=== PATIENT | female | born 1950 | race Caucasian/White ===

== ENCOUNTER 2021-01-21 10:35 | Emergency (ER) | payer MEDICARE, SELFPAY ==
--- NOTE | 2021-01-21 10:55 | ED.SKABFB ---
HPI - Skin/Abscess/Foreign Bdy General Chief complaint: Skin/Abscess/Foreign Body Stated complaint: Insect Bites Time Seen by Provider: 01/21/21 10:55 Source: patient and RN notes reviewed History of Present Illness HPI narrative: Patient is a 70-year-old female who presents the urgent care with complaints of insect bites to the left arm. Patient states that she was at a soccer game on Monday and got bit by gnats. Patient states that she refuses to take any yjfr-lvq-[id number] antihistamines because they make her drowsy . Therefore patient has only used hydrocortisone cream to the area. States that she needs a steroid . Denies any fever, chills, nausea, vomiting. No other acute complaints. No acute distress noted. Patient aware of the plan of care. Some parts of this dictation were generated by voice recognition software and may contain typographical and/or grammatical inaccuracies. Related Data Allergies Allergy/AdvReac Type Severity Reaction Status Date / Time No Known Allergies Allergy Verified 01/21/21 11:03 Review of Systems Review of Systems: Narrative: CONSTITUTIONAL: Denies fever, chills, or sweats. EYES: Denies visual changes, redness, or discharge. ENT: Denies rhinorrhea, congestion, sore throat, or otalgia. CARDIOVASCULAR: Denies chest pain, palpitations, or edema. RESPIRATORY: Denies cough or dyspnea. GASTROINTESTINAL: Denies abdominal pain, nausea, vomiting, or diarrhea. GENITOURINARY: Denies dysuria or hematuria. SKIN: Reports of itchy bug bites to the left lower arm MUSCULOSKELETAL: Denies back pain, joint pain, or myalgia. NEUROLOGIC: Denies headache, numbness, or weakness. All other systems reviewed are negative, except as documented in HPI. [facility] Social History Social History Gender identity (if verbalized by the patient): Female Comments At the time of my signature, I reviewed and agree with the nursing past medical, surgical, social, and family history. There is no relevant family history pertinent to the patient complaint. Exam Narrative: Exam Narrative: GENERAL: This is a well-nourished, well-developed patient, in no apparent distress. HEAD: normocephalic, atraumatic. EYES: PERRL. Sclera clear/white. Vision is grossly intact. EARS: External ears normal NOSE: External nose normal with no obvious nasal discharge, nares without redness, no rhinorrhea. THROAT: Mucous membranes moist NECK: Neck supple CARDIOVASCULAR: Regular rate and rhythm without murmurs, gallops, or rubs. RESPIRATORY: Clear to auscultation. Breath sounds equal bilaterally. No wheezes, rales, or rhonchi. SKIN: 4-5 scattered insect bites with mild erythema and edema noted to the left lower arm without any signs of cellulitis NEURO: awake, alert, and oriented to person, place and time. There were no obvious focal neurologic abnormalities. EXTREMITIES: No clubbing, cyanosis, or edema. Course Vital Signs Vital signs: Vital Signs Temperature 98.0 F 01/21/21 11:00 Pulse Rate 93 01/21/21 11:00 Respiratory Rate 20 01/21/21 11:00 Blood Pressure 154/74 H 01/21/21 11:00 Pulse Oximetry 100 01/21/21 11:00 Temperature 98.0 F 01/21/21 11:00 Pulse Rate 93 01/21/21 11:00 Respiratory Rate 20 01/21/21 11:00 Blood Pressure 154/74 H 01/21/21 11:00 Pulse Oximetry 100 01/21/21 11:00 Reviewed-patient is informed that they may have pre-hypertension or hypertension based on a blood pressure reading in the department. I recommend the patient call the primary care provider listed on their discharge instructions or a physician of their choice this week to arrange follow-up for further evaluation of possible pre-hypertension or hypertension. MDM - Skin/Abscess/Foreign Bdy MDM Narrative Medical decision making narrative: Advised the patient to use the prescription cream to the affected area. Complete the steroid regimen as prescribed. Be sure to eat and drink with the medication. Be sure that you are not sitting out i
[2021-01-21 11:00] VITALS: BP 154/74; PULSE 93; RESP 20; TEMP 36.7; O2SAT 100
== END 2021-01-21 11:14 | disposition home or self-care (01) ==
PROVIDERS: Emergency Provider Nurse Practitioner Family
DX: S50.862A Insect bite (nonvenomous) of left forearm, initial encounter (principal); W57.XXXA Bitten or stung by nonvenomous insect and other nonvenomous arthropods, initial encounter
CPT/HCPCS: 99213; G0463

== ENCOUNTER 2021-11-05 10:47 | Emergency (ER) | payer MEDICARE, SELFPAY ==
--- NOTE | 2021-11-05 10:54 | ED.EYEPROB ---
HPI - Eye Problem General Chief complaint: Eye Problems Stated complaint: Eye Problem Time Seen by Provider: 11/05/21 10:54 Source: patient and RN notes reviewed History of Present Illness HPI Narrative: Patient is a 71-year-old female who presents the urgent care with complaints of left eye pain. Patient states that she accidentally sprayed hairspray in the eye yesterday. States that she does not have any changes in vision but she still feels the pain . Patient has washed it out. States that she did this in the past and a prescription eyedrop the pain away . No other acute complaints. No acute distress noted. Patient aware of the plan of care. Some parts of this dictation were generated by voice recognition software and may contain typographical and/or grammatical inaccuracies. Related Data Allergies Allergy/AdvReac Type Severity Reaction Status Date / Time No Known Allergies Allergy Verified 11/05/21 11:05 Review of Systems Review of Systems: CONSTITUTIONAL: Denies fever, chills, or sweats. EYES: Reports of left eye pain without visual changes, redness or discharge ENT: Denies rhinorrhea, congestion, sore throat, or otalgia. CARDIOVASCULAR: Denies chest pain, palpitations, or edema. RESPIRATORY: Denies cough or dyspnea. GASTROINTESTINAL: Denies abdominal pain, nausea, vomiting, or diarrhea. GENITOURINARY: Denies dysuria or hematuria. SKIN: Denies rash or itching. MUSCULOSKELETAL: Denies back pain, joint pain, or myalgia. NEUROLOGIC: Denies headache, numbness, or weakness. All other systems reviewed are negative, except as documented in HPI. PMFSH Social History Social History Gender identity (if verbalized by the patient): Female Comments At the time of my signature, I reviewed and agree with the nursing past medical, surgical, social, and family history. There is no relevant family history pertinent to the patient complaint. Exam Narrative: GENERAL: This is a well-nourished, well-developed patient, in no apparent distress. HEAD: normocephalic, atraumatic. EYES: PERRL. Sclera clear/white. Vision is grossly intact-wearing corrective lenses. No obvious injury. Normal exam bilateral eyes. EARS: External ears normal NOSE: External nose normal with no obvious nasal discharge, nares without redness, no rhinorrhea. THROAT: Mucous membranes moist NECK: Neck supple CARDIOVASCULAR: Regular rate and rhythm without murmurs, gallops, or rubs. RESPIRATORY: Clear to auscultation. Breath sounds equal bilaterally. No wheezes, rales, or rhonchi. SKIN: warm, intact with no suspicious lesions or rash, good texture and turgor. NEURO: awake, alert, and oriented to person, place and time. There were no obvious focal neurologic abnormalities. EXTREMITIES: No clubbing, cyanosis, or edema. Course Course Level of Care: Express Care Visit Vital Signs Vital signs: Vital Signs Temperature 99.7 F H 11/05/21 10:58 Pulse Rate 89 11/05/21 10:58 Respiratory Rate 16 11/05/21 10:58 Blood Pressure 140/87 11/05/21 10:58 Pulse Oximetry 99 11/05/21 10:58 Temperature 99.7 F H 11/05/21 10:58 Pulse Rate 89 11/05/21 10:58 Respiratory Rate 16 11/05/21 10:58 Blood Pressure 140/87 11/05/21 10:58 Pulse Oximetry 99 11/05/21 10:58 Reviewed MDM - Eye Problem MDM Narrative Medical decision making narrative: Advised the patient to use prescription eyedrops to the left eye as prescribed. 3 days a prescribed drops should be more than enough. Continue eyewash or using Systane drops [id number]. If you have continual pain past 3 days or changes in vision?go to the emergency room and/or follow-up with your lead inspector. Follow-up with your PCP within 2 to 5 days or for worsening symptoms or failure to improve. Differential Diagnosis Differential diagnosis: Likely corneal abrasion, conjunctivitis, acute iritis, periorbital cellulitis and subconjunctival hemorrhage Critical Care Time Critical Care Time Critical
[2021-11-05 10:58] VITALS: BP 140/87; PULSE 89; RESP 16; TEMP 37.6; O2SAT 99
== END 2021-11-05 11:10 | disposition home or self-care (01) ==
PROVIDERS: Emergency Provider Nurse Practitioner Family
DX: H57.12 Ocular pain, left eye (principal)
CPT/HCPCS: 99213; G0463

== ENCOUNTER 2022-10-18 09:11 | Emergency (ER) | payer MEDICARE, SELFPAY ==
[2022-10-18 09:19] VITALS: BP 127/84; PULSE 96; RESP 16; TEMP 36.9; O2SAT 100
--- NOTE | 2022-10-18 09:43 | ED.GENADULT ---
HPI - General Adult General Chief complaint: Ear Stated complaint: Left Ear Pain Source: patient Mode of arrival: ambulatory Limitations: no limitations History of Present Illness HPI narrative: Patient presents for evaluation of left ear discomfort. Symptom onset 3 days ago. She reports pain, muffled hearing, and mild tinnitus. Denies drainage from the ear. No fever chills, nausea, vomiting, sore throat, or cough. She is not taking any medications to assist with her symptoms. No additional complaints or concerns. Related Data Allergies Allergy/AdvReac Type Severity Reaction Status Date / Time No Known Allergies Allergy Verified 11/05/21 11:05 Review of Systems Review of Systems: CONSTITUTIONAL: Denies fever, chills, or sweats. EYES: Denies visual changes, redness, or discharge. ENT: Reports left-sided otalgia, muffled hearing, tinnitus. Denies rhinorrhea, congestion, or sore throat CARDIOVASCULAR: Denies chest pain, palpitations, or edema. RESPIRATORY: Denies cough or dyspnea. GASTROINTESTINAL: Denies abdominal pain, nausea, vomiting, or diarrhea. GENITOURINARY: Denies dysuria or hematuria. SKIN: Denies rash or itching. MUSCULOSKELETAL: Denies back pain, joint pain, or myalgia. NEUROLOGIC: Denies headache, numbness, dizziness, or weakness. PSYCHIATRIC: Denies anxiety or depression. [facility] Past Medical History Medical History Seasonal allergies Surgical History Surgical History History of hysterectomy Family History Family History Mother Family history non-contributory Social History Social History Smoking status: Never smoker Alcohol intake: never Substance use: never Living arrangements: with family Gender identity (if verbalized by the patient): Female Sexual Orientation (if Verbalized by the Patient): Straight or Heterosexual Spiritual care concerns: No Exam Narrative: GENERAL: Well-appearing, well-nourished, and in no acute distress. HEAD: Normocephalic, atraumatic. EYES: PERRLA and EOMI. ENT: Nares clear, no rhinorrhea or epistaxis. Mucous membranes moist. Oropharynx without tonsillar hypertrophy exudate or other lesions. Left tympanic membrane erythema with yellow exudate and retraction present NECK: Supple. No adenopathy or masses. No carotid bruits or JVD CHEST: Clear to auscultation. No respiratory distress. No wheezes rales or rhonchi HEART: Regular rate and rhythm. No murmur heard. Normal peripheral pulses. ABDOMEN: Soft, nontender, nondistended, normal active bowel sounds. EXTREMITIES: Normal range of motion. No edema. SKIN: Warm, dry, no rash. NEURO: No focal deficits. Alert and oriented x3. PSYCH: Normal mood and affect. Course Course Emergency Course: This is a 72-year-old female who presented for evaluation of left-sided ear discomfort. She has evidence of otitis media on exam. Will treat with Augmentin. Increase hydration. Thtr-gpf-[id number] agents for symptom management. Follow up with primary provider. Go to the ER for worsening symptoms. Patient in agreement with plan of care. Level of Care: Express Care Visit Vital Signs Vital signs: Vital Signs Temperature 36.9 C 10/18/22 09:19 Pulse Rate 96 10/18/22 09:19 Respiratory Rate 16 10/18/22 09:19 Blood Pressure 127/84 10/18/22 09:19 Pulse Oximetry 100 10/18/22 09:19 Oxygen Delivery Room Air 10/18/22 09:19 Temperature 36.9 C 10/18/22 09:19 Pulse Rate 96 10/18/22 09:19 Respiratory Rate 16 10/18/22 09:19 Blood Pressure 127/84 10/18/22 09:19 Pulse Oximetry 100 10/18/22 09:19 Oxygen Delivery Room Air 10/18/22 09:19 Medical Decision Making Vital Signs Vital Signs: Vital Signs Temperature 36.9 C 10/18/22 09:19 Pulse
== END 2022-10-18 09:44 | disposition home or self-care (01) ==
PROVIDERS: Emergency Provider Nurse Practitioner; PCP Emergency Medicine
DX: H66.92 Otitis media, unspecified, left ear (principal)
CPT/HCPCS: 99213; G0463

== ENCOUNTER 2023-04-07 08:52 | Emergency (ER) | payer MEDICARE, SELFPAY ==
[2023-04-07 09:02] VITALS: BP 145/82; PULSE 86; RESP 16; TEMP 36.9; O2SAT 97
--- NOTE | 2023-04-07 09:06 | ED.DENTAL ---
HPI - Dental/Oral General Chief complaint: Upper Respiratory Infection Stated complaint: sore throat Mode of arrival: ambulatory Limitations: no limitations History of Present Illness HPI Narrative: 72-year-old female presents with concern for a sore in her mouth is being caused by her oral appliance not fitting well. She reports she noticed this yesterday. She reports she has her grandchild wedding tomorrow in she would like a taking a before the wedding. She denies dental pain, purulent drainage, difficulty swallowing. Related Data Allergies Allergy/AdvReac Type Severity Reaction Status Date / Time No Known Allergies Allergy Verified 04/07/23 09:13 Review of Systems Review of Systems: CONSTITUTIONAL: Denies malaise, chills, sweats, or fever. EYES: Denies visual changes ENT: Denies rhinorrhea, congestion, sinus pain, otalgia or sore throat. Reports oral lesion CARDIOVASCULAR: Denies chest pain, palpitations RESPIRATORY: Denies cough or dyspnea. SKIN: Denies rash or itching. MUSCULOSKELETAL: Denies myalgia. NEUROLOGIC: Denies numbness, weakness, or headache. All systems reviewed & are unremarkable except as noted in HPI and below PMFSH Past Medical History Medical History Seasonal allergies Surgical History Surgical History History of hysterectomy Family History Family History Mother Family history non-contributory Social History Social History Smoking status: Never smoker Alcohol intake: never Substance use: never Living arrangements: with family Gender identity (if verbalized by the patient): Female Sexual Orientation (if Verbalized by the Patient): Straight or Heterosexual Spiritual care concerns: No Comments At time of signature, agree with nursing past medical, surgical, social and family history. There is no relevant family history pertinent to the presenting complaint Exam Narrative: GENERAL: Well-appearing, well-nourished, and in no acute distress. HEAD: Normocephalic, atraumatic. EYES: PERRLA, sclera clear ENT: Nares clear, no rhinorrhea or epistaxis. Mucous membranes moist. 0.5 cm flat or lesion with pink tissue bed noted to the left side of the tongue without surrounding erythema or edema, no drainage. Tonsils not enlarged and without exudate. Missing teeth, broken teeth, caries NECK: Supple. No lymphadenopathy. CHEST: No respiratory distress. Speaks in full sentences. HEART: Regular rate and rhythm. SKIN: Warm, dry, no visible rash. NEURO: Alert and oriented x3. PSYCH: Normal mood and affect Course Course Emergency Course: Patient is aware of diagnosis, understands and agrees to treatment plan. Anticipatory guidance given. Patient agrees to follow-up as directed and is aware of reasons to seek care at the emergency department. Portions of this record may have been created with voice recognition software Level of Care: Express Care Visit Vital Signs Vital signs: Vital Signs Temperature 98.5 F 04/07/23 09:02 Pulse Rate 86 04/07/23 09:02 Respiratory Rate 16 04/07/23 09:02 Blood Pressure 145/82 H 04/07/23 09:02 Pulse Oximetry 97 04/07/23 09:02 Oxygen Delivery Room Air 04/07/23 09:02 Temperature 98.5 F 04/07/23 09:02 Pulse Rate 86 04/07/23 09:02 Respiratory Rate 16 04/07/23 09:02 Blood Pressure 145/82 H 04/07/23 09:02 Pulse Oximetry 97 04/07/23 09:02 Oxygen Delivery Room Air 04/07/23 09:02 Reviewed. MDM - Dental/Oral MDM Narrative Medical decision making narrative: Patients pain and complaint coupled with physical findings are consistant with dentalgia. There are no focal signs of space occupying lesions that are compromising to the airway; no dysphagia, odynophagia,
== END 2023-04-07 09:18 | disposition home or self-care (01) ==
PROVIDERS: Emergency Provider Nurse Practitioner
DX: K13.70 Unspecified lesions of oral mucosa (principal)
CPT/HCPCS: 99213; G0463

== ENCOUNTER 2025-02-24 10:13 | Emergency (ER) | payer MEDICARE, SELFPAY ==
[2025-02-24 10:17] VITALS: BP 141/90; PULSE 96; RESP 16; TEMP 36.8; O2SAT 100
--- OUTSIDE RECORDS SUMMARY | 2025-02-24 10:20 | XMS_ITS | Referral Summary ---
Author Organization [facility] [address] Address [address] [place] [address] Care Team Providers Care Sheet Metal Shop Helper Name Role Phone No, Physician Primary Care Provider [phone] Allergies No known active allergies Medications methylPREDNISol one (JONO FERREIRA,) 4 mg DosepackIndicat ions:Allergic reaction to insect bite follow package directions 21 tablet 9 Active Additional Information Patient not taking.Reported on 03/10/2019 methylPREDNISol one (MedrolJono,) 4 mg DosepackIndicat ions:Allergic reaction to chemical substance, accidental or unintentional, initial encounter follow package directions 21 tablet 0 Active Active Problems No known active problems Social History Tobacco Use Types Packs/Day Years Used Date Smoking Tobacco: Never Smokeless Tobacco: Never Tobacco Cessation:Counseling Given: No Comments No Sex and Gender Information Value Date Recorded Sex Assigned at Not on file 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 Gender Identity Not on file Sexual Orientation Not on file Last Filed Vital Signs Vital Sign Reading Time Taken Comments Blood Pressure 136/88 11/27/2019 10:33 AM CDT Pulse 72 11/27/2019 10:33 AM CDT Temperature 36.7 C (98 F) 11/27/2019 10:33 AM CDT Respiratory Rate 18 11/27/2019 10:33 AM CDT Oxygen Saturation 95% 11/27/2019 10:33 AM CDT Inhaled Oxygen Concentration - - Weight 55.3 kg (122 lb) 11/27/2019 10:33 AM CDT Height 152.4 cm (5') 11/27/2019 10:33 AM CDT Body Mass Index 23.83 11/27/2019 10:33 AM CDT Plan of Treatment Not on file Insurance MEDICARE Care Teams Sheet Metal Shop Helper Relationship Specialty Start Date End Date No, Physician PCP - General 12/27/18
--- OUTSIDE RECORDS SUMMARY | 2025-02-24 10:20 | XMS_ITS | Clinical Summary ---
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 Gender Identity Not on file Sexual Orientation Not on file Obstetrics History Last Filed Vital Signs Vital Sign Reading [...] 11/27/2019 10:33 AM CDT Plan of Treatment Health Maintenance Due Date Last Done Comments Breast Cancer Screening-Mammogram 1950 Colon Cancer Screening-Colonoscopy 1950 Depression Screening 1950 Fall Risk Assessment 1950 Hepatitis C Screening 1950 Osteoporosis Screening-Bone Density Scan 1950 DTaP/Tdap/Td Vaccine (1 - Tdap) 10/15/1962 Hepatitis B Screening 10/15/1969 Pneumococcal vaccine 65+ (1 of 1 - PCV) 10/15/2001 Zoster Vaccine (1 of 2) 10/15/2001 Well Visit 65+ 10/15/2016 Covid-19 Vaccine (2023-2 5 season) 2024 05/18/2023, 05/30/2022, 07/24/2021, Additional history exists Influenza Vaccine (Season Ended) 2025 07/12/20 22 Insurance MEDICARE Care Teams Injection Molding Operator Relationship Specialty Start Date End Date No, Physician PCP - General 12/27/18
--- OUTSIDE RECORDS SUMMARY | 2025-02-24 10:20 | XMS_ITS | Clinical Summary ---
Author Organization [facility] Address [address] [place] [address] Care Team Providers Care News Library Director Name Role Phone Jacky Alfaro MD Primary Care Provider Lorrie vailable Source Comments [facility],non-owned Affiliates and Associated Physician Practices is amultiple site organization consisting of ambulatory clinics and hospital sitesin [place], [place], [place] and [place]. This disclosure is being madepursuant to the Care Everywhere program and may not contain all information available regarding this patient. Last updated 18.[facility] Allergies No known active allergies Medications * Be aware that medications may not be up to date on this document. Alwaysverify current medications with the patient. sulfacetamide (BLEPH-10) 10 % ophthalmic solutionIndica tions:CONJUNCT IVITIS Instill 2 (two) drops into left eye 4 times daily Reasons: CONJUNCTIVITIS 15 mL Active Social History Tobacco Use Types Packs/Day Years Used Date Smoking Tobacco: Never Smokeless Tobacco: Never Comments No Sex and Gender Information Value Date Recorded Sex Assigned at Not on file Legal Sex Female 10:04 AM CDT Gender Identity Not on file Sexual Orientation Not on file Last Filed Vital Signs Vital Sign Reading Time Taken Comments Blood Pressure 128/80 01/15/2021 4:48 PM CDT Pulse 78 01/15/2021 4:48 PM CDT Temperature 36.8 C (98.3 F) 01/15/2021 4:48 PM CDT Respiratory Rate 18 01/15/2021 4:48 PM CDT Oxygen Saturation 97% 01/15/2021 4:48 PM CDT Inhaled Oxygen Concentration - - Weight 54.9 kg (121 lb) 05/28/2017 10:25 AM CDT Height 152.4 cm (5') 05/28/2017 10:25 AM CDT Body Mass Index 23.63 05/28/2017 10:25 AM CDT Plan of Treatment Health Maintenance Due Date Last Done Comments BONE DENSITY TESTING 1950 COLOGUARD (AGES 45-75) - COL ON CA SCREENING 1950 COLON MONITORING 1950 COLONOSCOPY - COLON CA SCREENING 1951 CT COLONOGRAPHY - COLON CA SCREENING 1950 Colorectal Cancer Screening 1950 FIT - COLON CA SCREENING 1950 FLEX SIG - COLON CA SCREENING 1950 LIPID TESTING 1950 MAMMOGRAM 1950 HEPATITIS C SCREENING 10/11/1969 DTAP/TDAP/TD VACCINES (1 - Tdap) 10/15/1970 PNEUMOCOCCAL VACCINE 50+ (1 of 1 - PCV) 10/15/2001 ZOSTER VACCINE (1 of 2) 10/15/2001 COVID-19 VACCINE (3 - 2023-2 5 season) 2024 10/24/2020, 09/16/2020 DEPRESSION SCREENING 08/07/2024 INFLUENZA VACCINE (#1) 2025 Respiratory Syncytial Virus (RSV) Vaccine Pt: or over 60 yrs (1 - 1-dose 75+ series) 10/15/2026 HEPATITIS B VACCINE Aged Out No longe r eligible based on patient's age to complete this topic HIB VACCINE Aged Out No longer eligi ble based on patient's age to complete this topic HPV VACCINE Aged Out No longer eligi ble based on patient's age to complete this topic MENINGOCOCCAL (Group B) VACCINE SHARED DECISION-MAKING Aged Out No longer eligible based on patient's age to complete this topic MENINGOCOCCAL GROUPS A/C/Y/W VACCINE Aged Out No longer eligible b ased on patient's age to complete this topic Insurance MEDICARE MEDICARE Care Teams News Library Director Relationship Specialty Start Date End Date Jacky Alfaro MD PCP - General Obstetrics and Gynecology 05/28/17
--- NOTE | 2025-02-24 10:45 | ED_ITS ---
HPI - Extremity Problem General Chief complaint: Skin/Abscess/Foreign Body Stated complaint: right elbow swollen Time Seen by Provider: 02/24/25 11:00 Source: patient, RN notes reviewed and old records reviewed Mode of arrival: ambulatory Limitations: no limitations History of Present Illness HPI Narrative: 74-year-old female presents to the [facility] with right elbow swelling, discomfort, decreased range of motion. States that she woke this morning with the swelling, pain and redness. Denies any injury. Positive radial pulse, capillary refill under 2 seconds Related Data Home Medications ?Medication ?Instructions ?Recorded ?Confirmed ?Last Taken ?Type fexofenadine-pseudoephedrine PO 02/24/25 Unknown History Allergies Allergy/AdvReac Type Severity Reaction Status Date / Time No Known Allergies Allergy Verified 02/24/25 10:27 Review of Systems Review of Systems: All systems reviewed & are unremarkable except as noted in HPI and below Constitutional: Constitutional: Reports no additional constitutional complaints Musculoskeletal: Musculoskeletal: Reports as per HPI Integumentary/Breasts: Skin/Breast: Reports system reviewed and no additional complaints, except as docu PMFSH Past Medical History Medical History Seasonal allergies Surgical History Surgical History History of hysterectomy Family History Family History Mother Family history non-contributory Social History Social History Smoking status: Never smoker Alcohol intake: never Substance use: never Living arrangements: with family Gender identity (if verbalized by the patient): Female Sexual Orientation (if Verbalized by the Patient): Straight or Heterosexual Spiritual care concerns: No Comments At the time of my signature, I reviewed and agree with the nursing past medical, surgical, social, and family history. There is no relevant family history pertinent to the patient complaint. Exam Const: General: cooperative, healthy appearing, comfortable, no acute distress, well developed, alert and well nourished Nutritional Appearance: well nourished Orientation/consciousness: patient oriented x3 Limitations: no limitations HENMT: Head: normal to inspection Eyes: General: appearance normal, both eyes and all related structures Alignment and Position: alignment normal Neck: Neck: normal visual inspection, full ROM, no lymphadenopathy and no meningeal signs Chest: Chest palpation & inspection: normal inspection of the chest Resp: Effort & Inspection: normal respiratory effort and able to speak in complete sentences Cardio: Rate: regular rate Skin: General skin exam: normal color and no rashes or lesions noted Neuro: General: patient oriented x3, gait normal, moves all extremities and no meningeal signs Cognition (Neuro): normal cognition Speech: normal speech Gait exam (Neuro): Normal gait present Extrem: General: normal to inspection, full ROM, capillary refill normal and normal gait Right upper extremity: elbow/forearm tenderness of the olecranon, swelling of the olecranon and abnormal ROM pain with active ROM during, wrist normal to inspection and Extremity exam: right hand normal to inspection and normal capillary refill Psych: Appearance: grossly normal and well kempt Mental Status: mental status grossly normal Speech and movement: Normal speech and movement present and Clear speech present Affect: normal affect Attitude: cooperative Course Course Level of Care: Express Care Visit Vital Signs Vital signs: Vital Signs Temperature 98.2 F 02/24/25 10:17 Pulse Rate 96 02/24/25 10:17 Respiratory Rate 16 02/24/25 10:17 Blood Pressure 141/90 H 02/24/25 10:17 Pulse Oximetry 100 02/24/25 10:17 Oxygen Delivery Room Air 02/24/25 10:17 Temperature 98.2 F 02/24/25 10:17 Pulse Rate 96 02/24/25 10:17 Respiratory Rate 16 02/24/25 10:17 Blood Pressure 141/90 H 02/24/25 10:17 Pulse Oximetry 100 02/24/25 10:17 Oxygen Delivery Room Air 02/24/25 10:17 Reviewed MDM - Extremity (Nontraumatic) MDM Narrative Medical decision making narrative: Patient sitting in exam room. Patient is nontoxic stable. Patient presents with right elbow swelling since this morning. Exam consistent with olecranon bursitis. Patient appropriate for outpatient treatment with close follow No additional testing or treatment needed Discharge instructions reviewed with patient, as well as provided in writing per nursing staff. The instructions also include specific and strict return/GO TO THE ER as well as f/u information. All questions have been answered, and the patient deny any further questions with discharge and discharge plan. Some parts of this dictation were generated by voice recognition software and may contain typographical and/or grammatical inaccuracies. Differential Diagnosis Differential diagnosis: Likely gout and other (Bursitis, arthritis) Critical Care Time Critical Care Time Critical Care Time: No Discharge Plan Discharge Clinical Impression: Bursitis, olecranon Qualifiers: Laterality: right Qualified Code(s): M70.21 - Olecranon bursitis, right elbow Patient Disposition: Home Condition: Stable Instructions: Antibiotic Form, Elbow Bursitis (ED) Additional Instructions: Take medications as prescribed Follow-up with primary care provider If you are having a hard time finding a physician please call our [facility] group liaison at [phone]. New or worsening symptoms go directly to emergency Patient Language: Welsh Prescriptions: New indomethacin 50 mg capsule 50 mg PO BID Qty: 14 0RF Rx Instructions: administer with food or milk No Action fexofenadine-pseudoephedrine [Madeleine-D 24 Hour] PO Follow-up/Referrals: PHYSICIAN,ELECTRICAL AND INSTRUMENT ENGINEER [Primary Care Provider] - Time of Disposition: 11:07
== END 2025-02-24 11:11 | disposition home or self-care (01) ==
PROVIDERS: Emergency Provider Nurse Practitioner
DX: M70.21 Olecranon bursitis, right elbow (principal)
CPT/HCPCS: 99213; G0463